=== PATIENT | female | born 1945 | race Caucasian/White ===

== ENCOUNTER 2019-12-20 13:21 | Outpatient (CLI) | payer MEDICARE, SELFPAY ==
--- NOTE | ~2019-12-20 | DEXA_ITS ---
Bone Density Report Name: Margarette López Age: 74 Sex: Female Ethnicity: White Date of : 1945 Indication: osteopenia; monitoring treatment; parental hip fracture; postmenopausal Referring Provider: Moises Salazar Study: Bone densitometry was performed. Exam Date: December 20, 2019 Accession number: [id number] Bone Density: Region BMD T-score Z-score Classification AP Spine (L1-L4) 0.880 -1.5 1.0 Osteopenia Femoral Neck (Left) 0.547 -2.7 -0.6 Osteoporosis Total Hip (Left) 0.695 -2.0 -0.1 Osteopenia Total Hip Bilateral Avg 0.716 -1.9 0.1 Osteopenia Femoral Neck (Right) 0.616 -2.1 0.1 Osteopenia Total Hip (Right) 0.736 -1.7 0.2 Osteopenia World Health Organization criteria for BMD impression classify patients as: Normal (T-score at or above -1.0), Osteopenia (T-score between -1.0 and -2.5), or Osteoporosis (T-score at or below -2.5). 10-year Fracture Risk: FRAX not reported because: Some T-score for Spine Total or Hip Total or Femoral Neck at or below -2.5 Treated for osteoporosis Previous Exams: Region Exam Age BMD T-score BMD Change BMD Change Date g/cm2 vs Baseline vs Previous AP Spine(L1-L4) 12/20/2019 74 0.880 -1.5 0.045(5.4%)# 0.004(0.4%)# 11/10/2016 71 0.876 -1.6 0.042(5.0%)# 0.056(6.8%)* 11/01/2014 69 0.820 -2.1 -0.014(-1.7%)# -0.018(-2.1%)# 10/29/2012 67 0.838 -1.9 0.003(0.4%)# -0.079(-8.6%)# 08/29/2010 65 0.917 -1.2 0.083(9.9%)* -0.011(-1.2%) 07/04/2008 63 0.929 -1.1 0.094(11.3%)* -0.001(-0.1%) 06/30/2006 61 0.930 -1.1 0.095(11.4%)* -0.026(-2.7%)* 06/19/2004 59 0.956 -0.8 0.121(14.5%)* 0.015(1.6%) 04/18/2002 57 0.941 -1.0 0.106(12.8%)* 0.106(12.8%)* 01/15/2001 55 0.835 -1.9 Total Hip(Left) 12/20/2019 74 0.695 -2.0 0.005(0.8%)# -0.044(-5.9%)# 11/10/2016 71 0.739 -1.7 0.049(7.1%)# 0.071(10.7%)* 11/01/2014 69 0.667 -2.3 -0.022(-3.2%)# -0.058(-8.0%)# 10/29/2012 67 0.725 -1.8 0.036(5.2%)# 0.051(7.5%)# 08/29/2010 65 0.675 -2.2 -0.015(-2.2%) 0.005(0.8%) 07/04/2008 63 0.669 -2.2 -0.020(-2.9%) -0.005(-0.7%) 06/30/2006 61 0.674 -2.2 -0.016(-2.3%) -0.016(-2.4%) 06/19/2004 59 0.690 -2.1 0.001(0.1%) 0.000(0.0%) 04/18/2002 57 0.690 -2.1 0.001(0.1%) 0.001(0.1%) 01/15/2001 55 0.690 -2.1 Total Hip(Right) 12/20/2019 74 0.736 -1.7 0.015(2.0%)# -0.037(-4.8%)# 11/10/2016 71 0.773 -1.4 0.052(7.1%)# 0.087(12.7%)* 11/01/2014 69 0.686 -2.1 -0.035(-4.9%)# 0.000(0.0%)# 10/29/2012 67 0.687 -2.1 -0.035(-4.9%)# -0.008(-1.1%)# 08/29/2010 65 0.695 -2.0 -
--- NOTE | ~2019-12-20 | CT_ITS ---
EXAMINATION: CT lung screening DATE: 12/20/2019 13:51 INDICATION: Greater than 30 pack-year history of smoking. TECHNIQUE: Computed tomography (CT) of the chest was performed without intravenous contrast. The dose -length product was 58.44 mGy-cm. Automated exposure control and iterative reconstruction technique w ere employed. COMPARISON: Chest x-ray dated 07/12/2018 FINDINGS: No significant pleural or pericardial effusion. There are calcified mediastinal lymph nodes , consistent with chronic granulomatous disease. There are nonobstructing left renal stones. There ar e gallstones. There is bilateral apical pleural thickening/scarring. There are scattered calcified gr anulomas in the lung parenchyma. There are small right upper lobe nodules measuring 3 mm or less. Mil d emphysema. There are small left upper lobe nodules measuring 2 mm or less. No endobronchial lesions . Mild thoracic spondylosis. No osteolytic or osteoblastic lesions. IMPRESSION: 1. Lung-RADS category 2: Benign appearance or behavior. Continue annual screening with noncontrast lo w-dose chest CT in 12 months. 2: Nonobstructing left nephrolithiasis. 3: Cholelithiasis. Reviewed, dictated and finalized at location A. IMPRESSION: 1. Lung-RADS category 2: Benign appearance or behavior. Continue annual screeni ng with noncontrast low-dose chest CT in 12 months. 2: Nonobstructing left nephrolithiasis. 3: Cholelithiasis.
--- NOTE | ~2019-12-20 | MM_ITS ---
EXAMINATION: MM screening wilma BI w marcella HISTORY: Screening mammogram TECHNIQUE: Craniocaudal and mediolateral oblique 3-D tomosynthesis images were obtained and synthetic 2-D images were generated. CAD analysis was submitted and interpreted. COMPARISON: 11/10/2016, 11/01/2014 bilateral digital screening mammogram examinations BREAST PARENCHYMAL COMPOSITION: FINDINGS: Scattered bilateral benign calcifications. There is no evidence of suspicious mass, calcifi cation, or architectural distortion to suggest malignancy in either breast. There has been no suspici ous interval change. IMPRESSION: 1. No mammographic evidence of malignancy. 2. Recommend routine screening mammography in one year. BI-RADS Category 2: Benign finding(s). Reviewed, dictated and finalized at location A.
== END 2019-12-20 13:22 | disposition home or self-care (01) ==
PROVIDERS: PCP Family Medicine; Visit Provider Physician Assistant Medical
DX: Z12.31 Encounter for screening mammogram for malignant neoplasm of breast (principal); Z12.2 Encounter for screening for malignant neoplasm of respiratory organs; Z87.891 Personal history of nicotine dependence; M81.0 Age-related osteoporosis without current pathological fracture; N20.0 Calculus of kidney; K80.20 Calculus of gallbladder without cholecystitis without obstruction; M85.89 Other specified disorders of bone density and structure, multiple sites
CPT/HCPCS: 77063; 77067; 77080; G0297

== ENCOUNTER 2021-09-09 09:37 | Outpatient (CLI) | payer MEDICARE, OTHER, SELFPAY ==
--- NOTE | 2021-09-09 09:58 | ECHO_ITS ---
Patient Info Name: Margarette López Age: 76 years : 1945 Gender: Female Ht: 62 in Wt: 101 lbs BSA: 1.41 m2 HR: 81 bpm BP: 133 / 73 mmHg Technical Quality: Good Exam Date: 09/09/2021 10:11 AM Exam Location: [facility] Patient Status: Outpatient Admit Date: 09/09/2021 Staff Ordering Physician: Sam Jimenez MD Business Systems Technician: Margaret Reed RDCS Attending Provider: Sam Jimenez MD Referring Physician: Barbara KIRBY; Exam Type: CA echo doppler color flow Study Info Indications R01.1 - Cardiac murmur, unspecified Complete two-dimensional, color flow and Doppler transthoracic echocardiogram is performed. Summary 1. Complete two-dimensional, color flow and Doppler transthoracic echocardiogram is performed. 2. Left ventricular chamber dimension is normal. 3. Left ventricular systolic function is normal, estimated at 55-60%. 4. The left ventricular diastolic function is grade I diastolic dysfunction. 5. E/e' 11 is mildly elevated. 6. Global longitudinal strain is mildly abnormal at -16.3%. 7. There is mild tricuspid valve regurgitation. 8. No pulmonary hypertension, estimated pulmonary arterial systolic pressure is 16 mmHg. Left Ventricle E/e' 11 is mildly elevated. Global longitudinal strain is mildly abnormal at -16.3%. Left ventricular chamber dimension is normal. Left ventricular systolic function is normal, estimated at 55-60%. The left ventricular diastolic function is grade I diastolic dysfunction. Right Ventricle Right ventricular chamber dimension is normal. Right ventricular systolic function is normal. Left Atria Left atrial chamber dimension is normal. Right Atria Right atrial chamber dimension is normal. Aortic Valve The aortic valve is trileaflet. There is no aortic valve stenosis. There is no aortic valve regurgitation. Pulmonic Valve There is no pulmonic regurgitation. Mitral Valve There is no mitral valve stenosis. There is no mitral valve regurgitation. Tricuspid Valve There is mild tricuspid valve regurgitation. No pulmonary hypertension, estimated pulmonary arterial systolic pressure is 16 mmHg. Pericardium/Pleural There is no pericardial effusion. Inferior Vena Cava Normal inferior vena cava with >50% collapse upon inspiration consistent with normal right atrial pressure, 5 mmHg. Aorta The aortic root size at the sinus of Valsalva is normal. Left Ventricular Outflow Tract Name Value Normal LVOT 2D LVOT Diameter 1.9 cm LVOT Doppler LVOT Peak Gradient 3 mmHg LVOT Mean Gradient 2 mmHg LVOT VTI 19 cm LVOT VTI/AV VTI Ratio 1.2 LVOT Stroke Volume 50 ml LVOT CO 4.1 l/min LVOT CI 2.9 l/min/m2 Pulmonic Valve Name Value Normal R
== END 2021-09-09 09:38 | disposition home or self-care (01) ==
PROVIDERS: PCP Family Medicine; Visit Provider Family Medicine
DX: R01.1 Cardiac murmur, unspecified (principal); I36.1 Nonrheumatic tricuspid (valve) insufficiency
CPT/HCPCS: 93306

== ENCOUNTER 2022-05-21 08:06 | Outpatient (CLI) | payer MEDICARE, OTHER, SELFPAY ==
[2022-05-21 08:56] LABS: Anion Gap 7 mmol/L (8-16); Blood Urea Nitrogen 20 mg/dL (7-18); Calcium 8.7 mg/dL (8.5-10.1); Carbon Dioxide 30 mmol/L (21-32); Chloride 108 mmol/L (98-108); Estimated Glomerular Filt Rate > 60; Glucose 91 mg/dL (70-99); Osmolality Calculated 302 mOsm/kg (285-295); Potassium 4.2 mmol/L (3.5-5.1); Sodium 145 mmol/L (136-145)
== END 2022-05-21 08:07 | disposition home or self-care (01) ==
PROVIDERS: PCP Family Medicine; Visit Provider Family Medicine
DX: R03.0 Elevated blood-pressure reading, without diagnosis of hypertension (principal)
CPT/HCPCS: 36415; 80048

== ENCOUNTER 2023-04-01 08:11 | Outpatient (CLI) | payer MEDICARE, OTHER, SELFPAY ==
[2023-04-01 20:07] LABS: Basophils Percent Auto 0.5 % (0.2-1.2); Eosinophils Absolute Auto 0.1 K/mm3 (0-0.3); Eosinophils Percent Auto 1.4 % (0-4.4); Hematocrit 43.2 % (37.0-47.0); Hemoglobin 13.3 g/dL (12.0-15.0); Immature Granulocyte Absolute 0.01 K/mm3 (0.00-0.031); Immature Granulocyte Percent A 0.1 % (0-0.5); Lymphocytes Percent Auto 47.9 % (18.3-44.2); Mean Corpuscular HGB Conc 30.8 g/dl (32-36); Mean Corpuscular Hemoglobin 31.7 pg (26-34); Mean Corpuscular Volume 103.1 fl (80-100); Mean Platelet Volume 11.3 fl (7.4-10.4); Monocytes Absolute Auto 0.7 K/mm3 (0.1-0.6); Monocytes Percent Auto 8.3 % (2.6-8.5); Neutrophils Absolute Auto 3.5 K/mm3 (1.3-6.7); Neutrophils Percent Auto 41.8 % (45.5-73.1); Platelet Count Result 281 k/mm3 (150-375); Red Blood Count 4.19 M/mm3 (4.2-5.4); Red Cell Distribution Width 13.2 % (11.5-14.5); White Blood Count 8.4 K/mm3 (4.5-10.0)
[2023-04-01 20:58] LABS: Alanine Aminotransferase 15 U/L (6-35); Albumin Level 4.2 g/dL (3.5-5.1); Alkaline Phosphatase 70 U/L (38-126); Anion Gap 9 mmol/L (8-16); Aspartate Amino Transferase 39 U/L (14-36); Bilirubin,Total 0.6 mg/dL (0.2-1.3); Blood Urea Nitrogen 21 mg/dL (7-17); Calcium 8.9 mg/dL (8.4-10.2); Carbon Dioxide 29 mmol/L (22-30); Chloride 103 mmol/L (98-107); Cholesterol 230 mg/dL (0-200); Estimated Glomerular Filt Rate > 60; Glucose 59 mg/dL (65-110); HDL Direct 77 mg/dL; LDL Cholesterol Direct 110 mg/dL; Potassium 4.1 mmol/L (3.4-5.0); Sodium 141 mmol/L (137-145); Triglycerides 107 mg/dL (<150)
== END 2023-04-01 08:12 | disposition home or self-care (01) ==
LOC: ANHGOSHLAB 08:12
PROVIDERS: Family Medicine; PCP Family Medicine; Visit Provider Physician Assistant
DX: R05.9 Cough, unspecified (principal); I10 Essential (primary) hypertension; E53.8 Deficiency of other specified B group vitamins; Z79.899 Other long term (current) drug therapy
CPT/HCPCS: 36415; 80053; 80061; 82607; 84443; 85025